=== PATIENT | female | born 1970 | race Caucasian/White ===

== ENCOUNTER 2016-05-24 15:56 | Emergency (ER) | payer OTHER ==
[~2016-05-24] VITALS: Wt 71.0 kg
[~2016-05-24 15:56] MED LIST: DICY20TA59 PO; DIPH1TAB25 PO; ZOF8 PO
[2016-05-24] MEDS ORDERED: ONDANSETRON 4 MG INJ IV STA (16:53)
[2016-05-24] MEDS ORDERED: KETOROLAC 30 MG INJ IV STA (16:53)
[2016-05-24] MEDS ORDERED: SOD CHLORIDE 0.9% 1,000 ML IV ONE (17:00)
[2016-05-24] MEDS ORDERED: DIPHENHYDRAMINE 50 MG INJ IV ONE (17:00)
[2016-05-24 17:50] LABS: BASOPHIL # 0.1 10^3/ul (0.0-0.1); BASOPHILS % 0.6 % (0.0-2.0); EOSINOPHILS # 2.1 10^3/ul (0.0-0.5); EOSINOPHILS % 16.2 % (0.0-7.0); HEMATOCRIT 39.2 % (37.0-47.0); HEMOGLOBIN 13.5 g/dl (12.0-16.0); LYMPHOCYTES # 4.1 10^3/ul (0.8-2.9); LYMPHOCYTES % 31.7 % (15.0-51.0); MEAN CORPUSCULAR HEMOGLOBIN 31.9 pg (29.0-33.0); MEAN CORPUSCULAR HGB CONC 34.5 g/dl (32.0-37.0); MEAN CORPUSCULAR VOLUME 92.4 fl (82.0-101.0); MEAN PLATELET VOLUME 8.9 fl (7.4-10.4); MONOCYTE # 0.6 10^3/ul (0.3-0.9); MONOCYTES % 4.9 % (0.0-11.0); NEUTROPHILS % 46.6 % (39.0-77.0); PLATELET COUNT 349 10^3/UL (140-440); RED BLOOD COUNT 4.24 10^6/ul (4.20-5.40); RED CELL DISTRIBUTION WIDTH 12.3 % (11.5-14.5); UNCORRECTED WBC 12.9 10^3/ul (4.8-10.8); WHITE BLOOD COUNT 12.9 10^3/ul (4.8-10.8)
[2016-05-24 17:53] LABS: INR 0.93; PROTIME 12.5 Sec (12.2-14.2)
[2016-05-24 17:54] LABS: POTASSIUM 3.7 mmol/L (3.5-5.1)
[2016-05-24 17:56] LABS: ALBUMIN/GLOBULIN RATIO 1.17; BILIRUBIN,INDIRECT 0.1 mg/dl (0-1.1); BILIRUBIN,TOTAL 0.1 mg/dl (0.2-1.3); CALCIUM 9.3 mg/dl (8.4-10.2); CREATININE 0.6 mg/dl (0.44-1.00); TOTAL PROTEIN 7.4 g/dl (6.1-8.1)
[2016-05-24 17:57] LABS: CONDITION 1; LH ANALYZER COMMENTS 1
--- NOTE | 2016-05-24 17:57 | RADRPT ---
PROCEDURE: XR Chest. CLINICAL INDICATION: Shortness of breath. Hematemesis. TECHNIQUE: Single frontal view. COMPARISON: 02/27/2015. FINDINGS: There is mild left basilar atelectasis or pneumonia. The lungs are otherwise clear. The heart size is normal. There is no pleural effusion. There is no pneumothorax. IMPRESSION: 1. Mild left basilar atelectasis or pneumonia. 2. Otherwise normal chest radiograph. RPTAT: QQ .Ang Cheng MD, MD Date Time Electronically viewed and signed by .Ang Cheng MD, MD on 05/24/2016 17:57 .R/
--- NOTE | 2016-05-24 18:08 | RADRPT ---
PROCEDURE: CT Abdomen and Pelvis without contrast. CLINICAL INDICATION: Abdominal and pelvic pain. History of appendectomy and hernia repair. TECHNIQUE: CT scan of the abdomen and pelvis without contrast was performed. Coronal and sagittal reformatted images were obtained from the axial source images. Images were reviewed on a high-resolu [employer] PACS workstation. Total exam DLP is 492.67 mGy-cm. CTDIvol is 8.67 mGy. One or more of the fo [facility] dose reduction techniques were used: Automated exposure control, adjustment of the mA and/or kV according to patient size, use of iterative reconstruction technique. COMPARISON: CT scan of the abdomen and pelvis dated 02/28/2015 which demonstrated previous cholecy stectomy, normal appendix, and a small ventral fat-containing abdominal wall hernia. FINDINGS: The lung bases are normal. There is no pleural effusion. The liver is normal in size and attenuation. There is a benign cyst anteriorly in the left hepatic lobe. There is no other focal hepatic lesion. The gallbladder is surgically absent with clips noted in the gallbladder bed. The spleen is normal in size. There is no focal splenic lesion. Both adrenals are normal with no enlargement or mass. The pancreas is unremarkable with no mass or evidence of pancreatitis. There is no renal mass or hydronephrosis. There is no renal calculus or ureteral calculus. The abdominal aorta is not dilated. There is no retroperitoneal lymphadenopathy or mass. There is no pelvic lymphadenopathy or mass. The bladder and distal ureters are normal. The periappendiceal region is unremarkable with no evidence of appendicitis. The bowel and mesentery are normal. As seen previously, there is a small supraumbilical anterior ab dominal wall midline hernia containing only omental fat. There is no free fluid or free gas. The osseous structures are unremarkable with no fracture or lytic lesion. IMPRESSION: 1. Benign hepatic cyst. 2. Status post cholecystectomy. 3. Normal appendix. 4. Unchanged ventral hernia containing only omental fat. 5. Otherwise unremarkable study. RPTAT: QQ .Ang Cheng MD, MD Date Time Electronically viewed and signed by .Ang Cheng MD, on 05/24/2016 18:08 .R/
[2016-05-24 18:31] LABS: ADD UMIC YES; URINE BILIRUBIN (Dip) NEGATIVE (NEGATIVE); URINE BLOOD (Dip) 1+ (NEGATIVE); URINE COLOR LT. YELLOW (YELLOW); URINE GLUCOSE (Dip) NEGATIVE (NEGATIVE); URINE KETONES (Dip) NEGATIVE (NEGATIVE); URINE LEUKOCYTE ESTERASE (Dip) TRACE (NEGATIVE); URINE NITRITE (Dip) NEGATIVE (NEGATIVE); URINE TOTAL PROTEIN (Dip) NEGATIVE (NEGATIVE); URINE UROBILINOGEN (Dip) 0.2 E.U./dL (0.1-1.0)
[2016-05-24 18:52] LABS: BACTERIA,URINE RARE; SQUAMOUS EPITHELIAL CELL,UR MODERATE; URINE RBCS 0-2 /HPF (0)
--- NOTE | 2016-05-24 19:54 | RADRPT ---
PROCEDURE: CT brain without contrast CLINICAL INDICATION: Headaches for 10 days. Epistaxis TECHNIQUE: A CT of the brain was performed utilizing axial sections from the skull base through th e vertex without contrast. Sagittal and coronal images were also reformatted. The exam CTDIvol = 45. 01 mGy and DLP = 720.23 mGy-cm. COMPARISON: None available FINDINGS: No acute intracranial hemorrhage is identified. There is no mass effect or midline shift. No extra -axial fluid collection is seen. The ventricles and sulci are within normal limits for size and con figuration. The density of the brain is within normal limits. Robles-white differentiation is preser mario. Solitary punctate calcification within the right frontal lobes sulcus likely is a sequela of p rior inflammation, possibly cysticercosis. There is no density alteration within the mariusz or cerebellum and the fourth ventricle is midline. The osseous structures are unremarkable. The mastoid air cells and visualized paranasal sinuses are clear. RPTAT:HJJR IMPRESSION: 1. No evidence of acute intracranial abnormality or mass effect. 2. Solitary punctate calcification within the right frontal lobes sulcus possibly the sequela of cy sticercosis. Physician Collette Date Time Electronically viewed and signed by Physician Collette on 05/24/2016 19:54 /
[2016-05-24] MEDS ORDERED: CEPH-443 PO (20:03)
[2016-05-24] MEDS ORDERED: TRAM50TA2 PO (20:03)
[2016-05-24 20:22] VITALS: BP 96/55; PULSE 60; RESP 18; TEMP 98.7
--- NOTE | 2016-05-29 13:35 | ERD ---
ER Documentation Chief Complaint Date/Time DATE: 05/29/16 TIME: 13:29 Chief Complaint HEADACHE X 10 DAYS HPI This patient is a 45-year-old female with history of hypotension presenting to the emergency department for abdominal pain, hematemesis, headache, and epistaxis. The patient states her headache has been constant the past 10 days. The patient states her epistaxis has been intermittent over the past 7 days. She states her headache is bilateral. Additionally she reports dizziness. She denies any nausea, vomiting, diarrhea, fevers, or other symptoms at this time. ROS All systems reviewed and are negative except as per history of present illness. Medications Home Meds Active Scripts Tramadol HCl (Tramadol HCl) 50 Mg Tablet, 50 MG PO Q4 Y for PAIN, #20 TAB Prov:MACIE PICKETT PA-C 05/24/16 Cephalexin* (Keflex*) 500 Mg Capsule, 500 MG PO TID for 7 Days, #21 CAP Prov:MACIE PICKETT PA-C 05/24/16 Dicyclomine Hcl* (Bentyl*) 20 Mg Tablet, 20 MG PO QID, #10 TAB Prov:JORDON CLARK MD 02/27/15 Diphenoxylate Hcl-Atropine* (Lomotil*) 1 Tab Tab, 1 TAB PO QID Y for DIARRHEA, # 10 Prov:JORDON CLARK MD 02/27/15 Ondansetron Hcl* (Zofran* ODT) 8 mg -ODT Tab.disper, 8 MG PO Q6H Y for NAUSEA AND OR VOMITING, #10 TAB Prov:JORDON CLARK MD 02/27/15 Allergies Allergies: Coded Allergies: No Known Allergy (Unverified , 02/27/15) PMhx/Soc History of Surgery: Yes (APPENDECTOMY, HERNIA REPAIR x2, x3) Anesthesia Reaction: No Hx Neurological Disorder: No Hx Respiratory Disorders: No Hx Cardiac Disorders: Yes (htn) Hx Psychiatric Problems: No Hx Miscellaneous Medical Probl: No Hx Alcohol Use: No Hx Substance Use: No Hx Tobacco Use: No Smoking Status: Never smoker FmHx Noncontributory for chief complaint Physical Exam Vitals Temperature: 98.1F Pulse: 71 Blood pressure: 118/73 Respirations: 18 O2 saturation: 99% on room air Physical Exam INITIAL VITAL SIGNS: Reviewed by me. GENERAL: Alert and interactive. No acute distress. HEAD: Head is normocephalic and atraumatic. EYES: EOMI. No scleral icterus. No conjunctival injection. ENT: Moist mucosa. NECK: Supple. Full range of motion. RESPIRATORY: Normal respiratory effort. Clear breath sounds bilaterally. No wheezing, rales, or rhonchi. CV: Regular rate and rhythm. Normal S1 S2. No S3 or S4. No murmurs. ABDOMEN: There is mild tenderness to palpation of the right upper quadrant. Negative Purvis sign. There is mild bilateral suprapubic tenderness to palpation. : There is no CVA tenderness bilaterally.. EXTREMITIES: No deformity. SKIN: Warm and dry. NEUROLOGIC: Alert and oriented x 4. Speech is normal. Moves all extremities equally. No motor or sensory deficits noted. Results 24 hrs Laboratory Tests Test 05/24/16 17:15 05/24/16 17:20 Urine Bacteria RARE Urine Bilirubin NEGATIVE Urine Clarity CLEAR Urine Color LT. YELLOW Urine Glucose NEGATIVE% Urine Hemoglobin 1+ Urine Ketones NEGATIVE Urine Leukocyte Esterase TRACE Urine Microscopic RBC 0-2/HPF Urine Microscopic WBC 0-2/HPF Urine Nitrite NEGATIVE Urine Specific [place] <=1.005 Urine Squamous Epithelial Cells MODERATE Urine Total Protein NEGATIVE Urine Urobilinogen 0.2 E.U./dL Urine pH 5.5 Activated Partial Thromboplast Time 26.0Sec Alanine Aminotransferase (ALT/SGPT) 19IU/L Albumin 4.0g/dl Albumin/Globulin Ratio 1.17 Alkaline Phosphatase 46IU/L Anion Gap 17 Aspartate Amino Transf (AST/SGOT) 18IU/L Basophils # 0.110^3/ul Basophils % 0.6% Blood Urea Nitrogen 10mg/dl Calcium Level 9.3mg/dl Carbon Dioxide Level 28mmol/L Chloride Level 105mmol/L Creatinine 0.60mg/dl Direct Bilirubin 0.00mg/dl Eosinophils # 2.110^3/ul Eosinophils % 16.2% Globulin 3.40g/dl Glucose Level 111mg/dl Hematocrit 39.2% Hemoglobin 13.5g/dl INR International Normalized Ratio 0.93 Indirect Bilirubin 0.1mg/dl Lipase 82U/L Lymphocytes # 4.110^3/ul Lymphocytes % 31.7% Mean Corpuscular Hemoglobin 31.9pg Mean Corpuscular Hemoglobin Concent 34.5g/dl Mean Corpuscular Volume 92.4fl Mean Platelet Volume 8.9fl Monocytes # 0.610^3/ul Monocytes % 4.9% Neutrophils # 6.010^3/ul Neutrophils % 46.6% Nucleated Red Blood Cells # 0.010^3/ul Nucleated Red Blood Cells % 0.0/100WBC Platelet Count 04445^3/UL Potassium Level 3.7mmol/L Prothrombin Time 12.5Sec Prothrombin Time Ratio 1.0 Red Blood Count 4.2410^6/ul Red Cell Distribution Width 12.3% Sodium Level 146mmol/L Total Bilirubin 0.1mg/dl Total Protein 7.4g/dl White Blood Count 12.910^3/ul Current Medications Medications (Trade) Dose Ordered Sig/Lj Route PRN Reason Start Time Stop Time Status Last Admin Dose Admin Ondansetron HCl (Zofran Inj) 4 mg ONCE STAT IV 05/24/16 16:53 05/24/16 17:00 DC 05/24/16 17:27 Ketorolac Tromethamine (Toradol) 30 mg ONCE STAT IV 05/24/16 16:53 05/24/16 17:00 DC 05/24/16 17:28 Diphenhydramine HCl 25 mg 25 mg ONCE ONCE IV 05/24/16 17:00 05/24/16 17:01 DC 05/24/16 17:27 Sodium Chloride (NS) 1,000 ml @ 1,000 mls/hr Q1H ONCE IV 05/24/16 17:00 05/24/16 17:59 DC 05/24/16 17:26 Procedures/MDM EMERGENCY DEPARTMENT COURSE / MEDICAL DECISION MAKING: This is a 45-year-old female who comes to the emergency room secondary to complaints of headache, abdominal pain, epistaxis, and hematemesis. The patient was given Zofran, Toradol, Benadryl, and IV fluids in the department. On re-evaluation, the patient was feeling improved. Lab results reviewed and showed leukocytosis but no other significant acute abnormalities. UA results are concerning for urinary tract infection. Radiology: PROCEDURE: CT Abdomen and Pelvis without contrast. CLINICAL INDICATION: Abdominal and pelvic pain. History of appendectomy and hernia repair. TECHNIQUE: CT scan of the abdomen and pelvis without contrast was performed. Coronal and sagittal reformatted images were obtained from the axial source images. Images were reviewed on a high-resolution PACS workstation. Total exam DLP is 492.67 mGy-cm. CTDIvol is 8.67 mGy. One or more of the following dose reduction techniques were used: Automated exposure control, adjustment of the mA and/or kV according to patient size, use of iterative reconstruction technique. COMPARISON: CT scan of the abdomen and pelvis dated 02/28/2015 which demonstrated previous cholecystectomy, normal appendix, and a small ventral fat- containing abdominal wall hernia. FINDINGS: The lung bases are normal. There is no pleural effusion. The liver is normal in size and attenuation. There is a benign cyst anteriorly in the left hepatic lobe. There is no other focal hepatic lesion. The gallbladder is surgically absent with clips noted in the gallbladder bed. The spleen is normal in size. There is no focal splenic lesion. Both adrenals are normal with no enlargement or mass. The pancreas is unremarkable with no mass or evidence of pancreatitis. There is no renal mass or hydronephrosis. There is no renal calculus or ureteral calculus. The abdominal aorta is not dilated. There is no retroperitoneal lymphadenopathy or mass. There is no pelvic lymphadenopathy or mass. The bladder and distal ureters are normal. The periappendiceal region is unremarkable with no evidence of appendicitis. The bowel and mesentery are normal. As seen previously, there is a small supraumbilical anterior abdominal wall midline hernia containing only omental fat. There is no free fluid or free gas. The osseous structures are unremarkable with no fracture or lytic lesion. IMPRESSION: 1. Benign hepatic cyst. 2. Status post cholecystectomy. 3. Normal appendix. 4. Unchanged ventral hernia containing only omental fat. 5. Otherwise unremarkable study. RPTAT: QQ .Ang Cheng MD, MD Date Time Electronically viewed and signed by .Ang Cheng MD, on 05/24/2016 18:08 PROCEDURE: CT brain without contrast CLINICAL INDICATION: Headaches for 10 days. Epistaxis TECHNIQUE: A CT of the brain was performed utilizing axial sections from the skull base through the vertex without contrast. Sagittal and coronal images were also reformatted. The exam CTDIvol = 45.01 mGy and DLP = 720.23 mGy-cm. COMPARISON: None available FINDINGS: No acute intracranial hemorrhage is identified. There is no mass effect or midline shift. No extra-axial fluid collection is seen. The ventricles and sulci are within normal limits for size and configuration. The density of the brain is within normal limits. Robles-white differentiation is preserved. Solitary punctate calcification within the right frontal lobes sulcus likely is a sequela of prior inflammation, possibly cysticercosis. There is no density alteration within the mariusz or cerebellum and the fourth ventricle is midline. The osseous structures are unremarkable. The mastoid air cells and visualized paranasal sinuses are clear. RPTAT:HJJR IMPRESSION: 1. No evidence of acute intracranial abnormality or mass effect. 2. 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 Physician Collette Date Time Electronically viewed and signed by Physician Collette on 05/24/2016 19:54 PROCEDURE: XR Chest. CLINICAL INDICATION: Shortness of breath. Hematemesis. TECHNIQUE: Single frontal view. COMPARISON: 02/27/2015. FINDINGS: There is mild left basilar atelectasis or pneumonia. The lungs are otherwise clear. The heart size is normal. There is no pleural effusion. There is no pneumothorax. IMPRESSION: 1. Mild left basilar atelectasis or pneumonia. 2. Otherwise normal chest radiograph. RPTAT: QQ .Ang Cheng MD, MD Date Time Electronically viewed and signed by .Ang Cheng MD, MD on 05/24/2016 17:57 The primary diagnosis is urinary tract infection. Secondary diagnosis is pneumonia. I have low suspicion for pneumothorax, pulmonary embolism, aortic dissection, meningitis, CVA, TIA, intracranial hemorrhage, cholecystitis, choledocholithiasis, appendicitis, or other emergent conditions at this time. Discharge: I have discussed the lab results and diagnostic findings with the patient and answered any questions or concerns. The patient was discharged with a prescription for tramadol and Keflex. The patient was advised to followup with their PMD in 1-2 days and to return to the Emergency Department if there are any new or worsening symptoms. The patient understood and agreed with the diagnosis, treatment and plan. The patient is stable for discharge at this time. Departure Diagnosis: Primary Impression: Urinary tract infection Additional Impression: Pneumonia Condition: Fair Patient Instructions: Understanding Urinary Tract Infections (UTIs), Pneumonia (Adult) Additional Instructions: No mas mejor en 2-3 cassidy, regresar. Mas peor en 24 horas, regresear rapidamente. Ir a doctor primario in 5-7 cassidy. Usar instrucciones cuando [place] medicamento. MACIE PICKETT PA-C May 29, 2016 13:35
== END 2016-05-24 20:23 | disposition home or self-care (01) ==
LOC: FTE 15:56
DX: N39.0 Urinary tract infection, site not specified (principal); J18.9 Pneumonia, unspecified organism; I10 Essential (primary) hypertension; R06.02 Shortness of breath; R10.2 Pelvic and perineal pain
CPT/HCPCS: 70450; 71010; 74176; 80053; 81001; 83690; 85025; 85610; 85730; J1200; J1885; J2405; J7030; 36415; 81003; 96374; 96375

== ENCOUNTER 2017-03-13 06:58 | Day surgery (SDC) | payer OTHER ==
[2017-03-12 11:05] VITALS: Ht 152.4 cm; Wt 65.0 kg
[2017-03-13] VITALS (13 sets, daily range): BP systolic 93–121; BP diastolic 51–68; PULSE 54–73; RESP 12–20
[~2017-03-13] VITALS: Ht 152.4 cm; Wt 65.0 kg
[~2017-03-13 06:58] MED LIST changes: +CEFAZOLIN 2 GM/50 ML (PMX) 50 ML IVPB SCH; +CEPH-443 PO; +SOD CHLORIDE 0.9% 1,000 ML IV SCH; +TRAM50TA2 PO
[2017-03-13] MEDS ORDERED: GLYCOPYRROLATE 0.4 MG INJ ONE (07:00)
[2017-03-13] MEDS ORDERED: NEOSTIGMINE 3 MG/3 ML SYRINGE ONE (07:00)
[2017-03-13] MEDS ORDERED: POLYMYXIN/BACITRACIN 1L IRRIG ONE (09:27)
[2017-03-13] MEDS ORDERED: BUPIVACAINE 0.25% (MPF) 30 ML INJ ONE (09:27)
[2017-03-13] MEDS ORDERED: PROCHLORPERAZINE 10 MG INJ IV PRN (09:30)
[2017-03-13] MEDS ORDERED: MEPERIDINE 25 MG INJ IV PRN (09:30)
[2017-03-13] MEDS ORDERED: DIPHENHYDRAMINE 50 MG INJ IV PRN (09:30)
[2017-03-13] MEDS ORDERED: OXYCODONE/ACETAMINOPHEN (5/325) TAB PO PRN (09:30)
[2017-03-13] MEDS ORDERED: ONDANSETRON 4 MG INJ IV PRN (09:30)
[2017-03-13] MEDS ORDERED: HYDROmorphONE (0.2 MG/ML) 10ML SYG IV PRN ×3 (09:30)
[2017-03-13] MEDS ORDERED: FENTAnyl 50 MCG/ML VIAL IV PRN ×3 (09:30)
[2017-03-13] MEDS ORDERED: ROCURONIUM 50 MG INJ ONE (09:57)
[2017-03-13] MEDS ORDERED: MIDAZOLAM 1 MG/ML 2 ML INJ ONE (09:57)
[2017-03-13] MEDS ORDERED: SUCCINYLCHOLINE CHLORIDE 100 MG/5 ML SYG IV ONE (09:57)
[2017-03-13] MEDS ORDERED: PROPOFOL 20 ML ONE (09:57)
[2017-03-13] MEDS ORDERED: LIDOCAINE 2% (SDV) 5 ML INJ ONE (09:57)
[2017-03-13] MEDS ORDERED: FENTAnyl 50 MCG/ML VIAL ONE (09:57)
[2017-03-13] MEDS ORDERED: EPHEDrine SULFATE 50 MG/5 ML SYG ONE (10:12)
[2017-03-13] MEDS ORDERED: CEFAZOLIN 1 GM INJ ONE (10:12)
[2017-03-13] MEDS ORDERED: FAMOTIDINE 20 MG INJ ONE (10:26)
[2017-03-13] MEDS ORDERED: DEXAMETHASONE 4 MG/ML 1 ML INJ ONE (10:26)
[2017-03-13] MEDS ORDERED: ONDANSETRON 4 MG INJ ONE (10:26)
[2017-03-13] MEDS ORDERED: KETOROLAC 30 MG INJ ONE (10:45)
--- NOTE | 2017-03-13 10:46 | OPR ---
Date/Time of Note Date/Time of Note DATE: 03/13/17 TIME: 10:41 Operative Report Procedure Date: Mar 13, 2017 Preoperative Diagnosis recurrent incarcerated incisional hernia Postoperative Diagnosis same Operation/Procedure Performed 1. laparoscopic recurrent incarcerated incisional hernia repair cpt code 93528 2. abdominal implantation of mesh 10 cm x 15 cm ventralight mesh cpt code 24488 3. laparoscopic lysis of adhesions 4. therapeutic injection of subcutaneous local anesthesia cpt code 87558 Surgeon see signature line Machinery Cleaner none Anesthesia Type: general Estimated Blood Loss: 0 - 10 ml's Transfusion none Specimen none Grafts/Implants none Complications none Pt Condition Post Procedure: stable Indications This is a 46-year-old female with recurrent incarcerated incisional hernia. She has had 2 prior hernia repairs. She presented with recurrent hernia symptoms and imaging consistent with recurrence. She requests surgical repair. Risks alternatives benefits and percent were discussed the patient. Patient expresses understanding consents to the operation. Procedure Description Patient is taken to the OR and prepped and draped in usual sterile fashion. Surgical timeout was performed. IV antibiotics were given. Left upper quadrant 5 mm transverse incision is made with a 15 blade. Using a 5 mm optical trocar optical entry is performed. Pneumoperitoneum is established. Left flank 12 mm trocar was placed under direct visualization. Left lower quadrant 5 mm optical trocar was placed under direct visualization. Upon initial inspection there is adhesions to the anterior abdominal wall and these were taken down using laparoscopic harmonic poncho. After laparoscopic lysis of adhesions was performed the hernia defect was identified. The defect was closed with multiple interrupted #1 Prolene using Endo Close and laparoscopic techniques. 10 x [address] mesh was then secured in place with approximately 4-5 cm of coverage in all directions. The mesh was secured with secure strap. There is good hemostasis. Ports removed under direct visualization. Skin was closed using interrupted and running 4-0 Monocryl. Therapeutic subcutaneous local anesthesia was injected. Dressings were applied. Arvin BROWNING Mar 13, 2017 10:46
[2017-03-13] MEDS ORDERED: HYDROCODONE/APAP (5/325) TAB PO ONE (11:00)
== END 2017-03-13 14:06 | disposition home or self-care (01) ==
LOC: SDS 06:58
PROVIDERS: ATTEND Surgery
DX: K43.0 Incisional hernia with obstruction, without gangrene (principal)
CPT/HCPCS: 49657; 84703; C1781; J0690; J1100; J1170; J1885; J2175; J2250; J2405; J2710; J3010; Z7512; Z7610

== ENCOUNTER 2019-01-23 16:30 | Emergency (ER) | payer OTHER ==
[~2019-01-23] VITALS: Ht 152.4 cm; Wt 66.4 kg
[2019-01-23 16:36] VITALS: BP 126/75; PULSE 65; RESP 18; Ht 152.4 cm; Wt 66.4 kg
[2019-01-23] MEDS ORDERED: ACETAMINOPHEN 500 MG TAB PO STA (17:43)
== END 2019-01-23 19:44 | disposition home or self-care (01) ==
LOC: FTE 16:30
DX: B69.9 Cysticercosis, unspecified (principal); R51 Headache; Z85.41 Personal history of malignant neoplasm of cervix uteri
CPT/HCPCS: 70450; 80053; 85025; 85610; 85730; Z7502; Z7610